=== PATIENT | female | born 1960 ===

== ENCOUNTER 2017-01-06 09:56 | Emergency (ER) | payer MEDICAID ==
[2017-01-06 09:56] VITALS: BMI 40.8
[2017-01-06 10:35] VITALS: RESP 19
--- NOTE | 2017-01-06 11:44 | ED PDOC ---
HPI: General Adult Time Seen by Provider: 01/06/17 10:47 Chief Complaint (Nursing): Flu-like Symptoms Chief Complaint (Provider): fluk like symtpoms History Per: Patient History/Exam Limitations: no limitations Additional Complaint(s): 56yo F in ED for eval of cough, congestion, bodyaches, fever, generalized ill feeling x2d no cp, no epigastric pain, no SOB,. admits to sick contacts in household Past Medical History Reviewed: Historical Data, Nursing Documentation, Vital Signs Vital Signs: Last Vital Signs Temp 97 F L 01/06/17 10:24 Pulse 112 H 01/06/17 10:24 Resp 19 01/06/17 10:24 BP 110/75 01/06/17 10:24 Pulse Ox 98 01/06/17 11:44 - Medical History PMH: Asthma, Diabetes, Diverticulitis, HTN, Hypercholesterolemia, Hyperthyroidism, Hypothyroidism, Malignancy (breast CA) Denies: Chronic Kidney Disease - Surgical History Surgical History: Cholecystectomy, (x 2) - Family History Family History: States: Diabetes, Hypertension - Home Medications Home Medications: Ambulatory Orders Medication Instructions Recorded Letrozole [Femara] 2.5 mg PO DAILY 08/06/14 MetFORMIN [glucoPHAGE] 1,000 mg PO BID 08/06/14 Atorvastatin Calcium [Lipitor] 20 mg PO HS 09/26/14 Glimepiride 4 mg PO BID 09/26/14 Fluticasone/Salmeterol 250/50 1 puff IH DAILY 09/29/14 [Advair Diskus 250/50] Ciprofloxacin HCl [Cipro] 500 mg PO BID #20 tab 01/16/16 metroNIDAZOLE [Flagyl] 500 mg PO TID #30 tab 01/16/16 Albuterol HFA [Ventolin HFA 90 2 puff IH Q4H PRN 01/18/16 mcg/actuation (8 g)] Aspirin [Ecotrin] 81 mg PO DAILY 01/18/16 Ergocalciferol (Vitamin D2) 50,000 unit PO QWK 01/18/16 [Vitamin D2] Levothyroxine [Synthroid] 125 mcg PO DAILY 01/18/16 Ondansetron [Zofran] 4 mg PO Q6H PRN #10 tab 01/18/16 Oxycodone HCl/Acetaminophen 1 tab PO Q4 PRN #12 tab 01/18/16 [Percocet 325 mg-5 mg] Valsartan/Hydrochlorothiazide 1 tab PO DAILY 01/18/16 [Diovan Hct 320-25 mg Tablet] Albuterol 0.083% [Albuterol 0.083% 2.5 mg IH Q4 PRN #20 neb 04/23/16 Inhal Krys (2.5 mg/3 ml) UD] Fluticasone/Salmeterol 250/50 1 puff IH Q12 #1 inh 04/23/16 [Advair Diskus] Prednisone 50 mg PO DAILY #5 tablet 04/23/16 Albuterol HFA [Ventolin HFA 90 2 puff IH Q6 #200 puff 01/06/17 mcg/actuation (8 g)] Azithromycin [Zithromax] 250 mg PO DAILY #6 tab 01/06/17 Dextromethorphan Polistirex 30 mg PO BID #100 marilyn.er.12h 01/06/17 [Delsym] - Allergies Allergies/Adverse Reactions: Allergies Allergy/AdvReac Type Severity Reaction Status Date / Time No Known Allergies Allergy Verified 04/23/16 12:41 Review of Systems ROS Statement: Except As Marked, All Systems Reviewed And Found Negative Constitutional: Positive for: Fever, Weakness, Malaise. Negative for: Chills Cardiovascular: Negative for: Chest Pain, Palpitations, Orthopnea Respiratory: Positive for: Cough, Sputum. Negative for: Shortness of Breath Gastrointestinal: Negative for: Nausea, Vomiting, Abdominal Pain Physical Exam - Reviewed Nursing Documentation Reviewed: Yes Vital Signs Reviewed: Yes - Physical Exam Appears: Positive for: Well, Non-toxic, No Acute Distress Head Exam: Positive for: ATRAUMATIC, NORMAL INSPECTION, NORMOCEPHALIC Skin: Positive for: Normal Color, Warm, DRY ENT: Positive for: Normal ENT Inspection Cardiovascular/Chest: Positive for: Regular Rate, Rhythm Respiratory: Positive for: CNT, Normal Breath Sounds Gastrointestinal/Abdominal: Positive for: Normal Exam, Bowel Sounds, Soft. Negative for: Tenderness Back: Positive for: Normal Inspection Extremity: Positive for: Normal ROM Neurologic/Psych: Positive for: Alert, Oriented - Laboratory Results Interpretation Of Abn Labs: influ a/b (-) - ECG O2 Sat by Pulse Oximetry: 98 - Radiology X-Ray: Interpreted by Me, Read By Radiologist X-Ray Interpretation: No Acute Disease Medical Decision Making Medical Decision Making: Pt HR improved in Ed, Pt breathing improved in ED after duoneb, Pt with negative influa/b. pt will need asthma control via rescue inhaler . pt EKG- pt will get Z-pack, deslym and albuterol rescue inhaler Disposition - Clinical Impression Clinical Impression: Influenza-like symptoms - Patient ED Disposition Is Patient to be Admitted: No Counseled Patient/Family Regarding: Studies Performed, Diagnosis, Need For Followup, Rx Given - Disposition Disposition: Routine/Home Disposition Time: 13:23 Condition: STABLE Prescriptions: Albuterol HFA [Ventolin HFA 90 mcg/actuation (8 g)] 2 puff IH Q6 #200 puff Azithromycin [Zithromax] 250 mg PO DAILY #6 tab Dextromethorphan Polistirex [Delsym] 30 mg PO BID #100 marilyn.er.12h Instructions: Antitussive/Expectorant (By mouth) Forms: [facility] ED School/Work Excuse
[2017-01-06] MEDS ORDERED: Albuterol-Ipratrop 3 mg / 0.5 (3 ml) UD ONE (12:11)
[2017-01-06] MEDS ORDERED: Albuterol-Ipratrop 3 mg / 0.5 (3 ml) UD INH STA (12:15)
--- NOTE | 2017-01-06 12:43 | RAD ---
HISTORY: cough COMPARISON: . Comparison made with prior chest radiograph 04/23/2016 TECHNIQUE: Chest PA and lateral FINDINGS: LUNGS: In situ right sided MediPort unchanged. There appears to be some mild bibasilar atelectasis PLEURA: No significant pleural effusion identified. No pneumothorax apparent. CARDIOVASCULAR: Normal. OSSEOUS STRUCTURES: No significant abnormalities. VISUALIZED UPPER ABDOMEN: Normal. OTHER FINDINGS: Tiny metallic surgical clips seen overlying the right lateral chest wall. Clinic correlation with surgical history. IMPRESSION: Mild bibasilar atelectasis.
[2017-01-06 14:05] VITALS: BP 128/67; PULSE 89; TEMP 98.2; O2SAT 100
--- NOTE | 2017-01-07 16:47 | CARD ---
APPROVED REPORT EKG Measurement Heart [id number] <Conclusion> Normal sinus rhythm Possible Left atrial enlargement Right bundle branch block Abnormal ECG
== END 2017-01-06 14:05 | disposition home or self-care (01) ==
LOC: H.ER 09:56
DX: R05 Cough (principal); J45.909 Unspecified asthma, uncomplicated; E05.90 Thyrotoxicosis, unspecified without thyrotoxic crisis or storm; E11.9 Type 2 diabetes mellitus without complications; E78.00 Pure hypercholesterolemia, unspecified; I10 Essential (primary) hypertension; I45.10 Unspecified right bundle-branch block; Z79.82 Long term (current) use of aspirin; Z79.84 Long term (current) use of oral hypoglycemic drugs; Z85.3 Personal history of malignant neoplasm of breast

== ENCOUNTER 2017-04-24 07:51 | Day surgery (SDC) | payer MEDICAID ==
[2017-04-24] MEDS ORDERED: Lactated Ringer's 500 ML IV ONE (08:10)
[2017-04-24] MEDS ORDERED: Sodium Chloride 0.9% 1,000 ML IV ONE (08:10)
[2017-04-24] MEDS ORDERED: Midazolam 2 MG/2 ML VIAL ONE (10:01)
[2017-04-24] MEDS ORDERED: Propofol 10 mg/ml Inj (20 ML) ONE (10:01)
[2017-04-24 10:19] VITALS: TEMP 97.2; O2SAT 100
[2017-04-24 10:30] VITALS: BP 120/76; PULSE 80; RESP 20
== END 2017-04-24 10:42 | disposition home or self-care (01) ==
LOC: H.ENDO 07:51
PROVIDERS: ATTEND Internal Medicine Gastroenterology
DX: Z12.11 Encounter for screening for malignant neoplasm of colon (principal); E11.9 Type 2 diabetes mellitus without complications; J45.909 Unspecified asthma, uncomplicated; E78.5 Hyperlipidemia, unspecified; I10 Essential (primary) hypertension; E03.9 Hypothyroidism, unspecified; K57.30 Diverticulosis of large intestine without perforation or abscess without bleeding; K64.1 Second degree hemorrhoids
CPT/HCPCS: 45378; 82948; J2250; J2704; J7040

== ENCOUNTER 2017-10-26 14:15 | Emergency (ER) | payer MEDICAID ==
[2017-10-26 14:16] VITALS: BMI 40.8
[2017-10-26 14:40] VITALS: RESP 18
--- NOTE | 2017-10-26 14:44 | ED PDOC ---
HPI: General Adult Time Seen by Provider: 10/26/17 14:43 Chief Complaint (Nursing): Fever Chief Complaint (Provider): fever, cough, body aches History Per: Patient Additional Complaint(s): 57-year-old female with history of asthma, hypertension, diabetes and high cholesterol presents to emergency department with fever, chills, body aches and cough that started 4 days ago. Patient has been taking Advil which has helped somewhat. Today symptoms became overwhelming prompting patient to come to ED. Patient denies any acute chest pain or shortness of breath. Patient has been using Ventolin inhaler and Advair inhaler twice daily but as the symptoms are still persistent. No recent travel PMD: Dr. Jean Ray Past Medical History Reviewed: Historical Data, Nursing Documentation, Vital Signs Vital Signs: Last Vital Signs Temp 698.1 F H 10/26/17 17:50 Pulse 84 10/26/17 17:50 Resp 18 10/26/17 17:50 BP 133/77 10/26/17 17:50 Pulse Ox 98 10/26/17 18:35 - Medical History PMH: Asthma, Diabetes, HTN, Hypercholesterolemia, Hypothyroidism, Malignancy ( breast CA) - Surgical History Surgical History: Cholecystectomy, (x 2) Other surgeries: right mastectomy - Family History Family History: States: Diabetes, Hypertension - Living Arrangements Living Arrangements: With Family - Social History Current smoker - smoking cessation education provided: No Alcohol: None Drugs: Denies - Home Medications Home Medications: Ambulatory Orders Medication Instructions Recorded MetFORMIN [glucoPHAGE] 1,000 mg PO BID 08/06/14 Atorvastatin Calcium [Lipitor] 20 mg PO HS 09/26/14 Glimepiride 4 mg PO BID 09/26/14 Albuterol HFA [Ventolin HFA 90 2 puff IH Q4H PRN 01/18/16 mcg/actuation (8 g)] Aspirin [Ecotrin] 81 mg PO DAILY 01/18/16 Levothyroxine [Synthroid] 125 mcg PO DAILY 01/18/16 Valsartan/Hydrochlorothiazide 1 tab PO DAILY 01/18/16 [Diovan Hct 320-25 mg Tablet] Azithromycin [Zithromax] 250 mg PO DAILY #6 tab 10/26/17 Benzonatate 200 mg PO TID PRN #20 capsule 10/26/17 Fluticasone/Salmeterol [Advair 1 each IH BID #1 packet 10/26/17 250-50 Diskus] Prednisone 50 mg PO DAILY #5 tablet 10/26/17 - Allergies Allergies/Adverse Reactions: Allergies Allergy/AdvReac Type Severity Reaction Status Date / Time No Known Allergies Allergy Verified 10/26/17 14:37 Review of Systems ROS Statement: Except As Marked, All Systems Reviewed And Found Negative Constitutional: Positive for: Fever, Chills Cardiovascular: Negative for: Chest Pain Respiratory: Positive for: Cough, Shortness of Breath, SOB with Exertion, Wheezing Gastrointestinal: Negative for: Nausea, Vomiting, Abdominal Pain Genitourinary Female: Negative for: Dysuria Neurological: Positive for: Headache. Negative for: Dizziness Physical Exam - Reviewed Nursing Documentation Reviewed: Yes Vital Signs Reviewed: Yes - Physical Exam Appears: Positive for: Well, Non-toxic, No Acute Distress Skin: Negative for: Rash Eye Exam: Positive for: Normal appearance ENT: Positive for: Nasal Congestion Cardiovascular/Chest: Positive for: Regular Rate, Rhythm Respiratory: Positive for: Wheezing (Bilateral inspiratory next 3 wheezing). Negative for: Respiratory Distress Gastrointestinal/Abdominal: Positive for: Other (Obese nontender abdomen) Back: Negative for: L CVA Tenderness, R CVA Tenderness Extremity: Positive for: Normal ROM Neurologic/Psych: Positive for: Alert, Oriented - Laboratory Results Result Diagrams: 10/26/17 15:50 10/26/17 15:50 - ECG O2 Sat by Pulse Oximetry: 98 Pulse Ox Interpretation: Normal - Other Rad CXR X-Ray: Interpreted by Me, Viewed By Me X-Ray Interpretation: no acute infiltrate Medical Decision Making Medical Decision Makin-year-old female with flu- like symptoms, afebrile, well-appearing, nontoxic-appearing upon arrival Plan: CXR Duoneb x 2 IV solumedrol 40 mg CBC CMP VBG Blood culture Flu swab Rapid strep IVF PO tylenol Additional 40 mg IV solumedrol given, patient still feels slightly short of breath but better. She states she usually needs more than 1 dose of steroid with asthma exacerbation. Lactate is 2.9, additional fluid bolus given, will re-check lactate again in 3 hrs. 7:30 pm: Repeat lactate is normal at 1.7. Repeat vitals are stable. Patient states she feels much better. Prescriptions given for Zithromax, prednisone, Advair and Tessalon Perles. Patient was instructed to follow up with clinic in 2 -3 days. She is aware she can return to emergency department any time if acutely worse. Disposition - Clinical Impression Clinical Impression: Asthmatic bronchitis - Patient ED Disposition Is Patient to be Admitted: No Counseled Patient/Family Regarding: Studies Performed, Diagnosis, Need For Followup, Rx Given - Disposition Referrals: Jean Ray MD [Family Provider] - Disposition: Routine/Home Disposition Time: 19:34 Condition: IMPROVED Additional Instructions: Take prescription meds as directed. Rest and drink plenty of fluids. Follow-up with clinic in 2-3 days or return any time if acutely worse. Prescriptions: Azithromycin [Zithromax] 250 mg PO DAILY #6 tab Benzonatate 200 mg PO TID PRN #20 capsule PRN Reason: Cough Fluticasone/Salmeterol [Advair 250-50 Diskus] 1 each IH BID #1 packet Prednisone 50 mg PO DAILY #5 tablet Instructions: Asthma in Adults, Acute Bronchitis Forms: [employer] ([place]), [facility] ED School/Work Excuse Results - Lab Results Lab Results: 10/26/17 10/26/17 10/26/17 19:22 17:39 15:50 WBC 4.8 D RBC 4.90 Hgb 12.7 Hct 38.6 MCV 78.8 L MCH 25.9 L MCHC 32.8 L RDW 15.3 H Plt Count 212 MPV 8.7 Neut % (Auto) 61.6 Lymph % (Auto) 29.3 Marion % (Auto) 6.6 Eos % (Auto) 2.1 Baso % (Auto) 0.4 Neut # (Auto) 3.0 Lymph # (Auto) 1.4 Marion # (Auto) 0.3 Eos # (Auto) 0.1 Baso # (Auto) 0.0 pO2 37 VBG pH 7.36 VBG pCO2 44 VBG HCO3 23.5 VBG Total CO2 26.3 VBG O2 Sat (Calc) 76.1 H VBG Base Excess -0.8 L VBG Potassium 4.2 Sodium 139.0 Chloride 105.0 Glucose 249 H Lactate 1.7 FiO2 21.0 Blood Gas Comments Crit Value Called To Crit Value Called By Crit Value Read Back Blood Gas Notified Time Potassium Carbon Dioxide Anion Gap BUN Creatinine Est GFR ( Amer) Est GFR (Non-Af Amer) POC Glucose (mg/dL) 165 H Random Glucose Calcium Total Bilirubin AST ALT Alkaline Phosphatase Total Protein Albumin Globulin Albumin/Globulin Ratio Venous Blood Potassium 4.2 Influenza Typ A,B (EIA) Grp A Beta Strep Ag 10/26/17 10/26/17 10/26/17 15:50 15:34 15:30 WBC RBC Hgb Hct MCV MCH MCHC RDW Plt Count MPV Neut % (Auto) Lymph % (Auto) Marion % (Auto) Eos % (Auto) Baso % (Auto) Neut # (Auto) Lymph # (Auto) Marion # (Auto) Eos # (Auto) Baso # (Auto) pO2 24 L VBG pH 7.33 VBG pCO2 54 VBG HCO3 24.5 VBG Total CO2 30.2 H VBG O2 Sat (Calc) 47.9 VBG Base Excess 1.5 VBG Potassium 3.9 Sodium 143 141.0 Chloride 102 103.0 Glucose 263 H Lactate 2.9 H FiO2 21.0 Blood Gas Comments Lac 2.9 Crit Value Called To marleny Schilling Crit Value Called By 22 Crit Value Read Back Y Blood Gas Notified Time 1544 Potassium 4.5 Carbon Dioxide 26 Anion Gap 20 BUN 22 H Creatinine 0.7 Est GFR ( Amer) > 60 Est GFR (Non-Af Amer) > 60 POC Glucose (mg/dL) Random Glucose 260 H Calcium 9.5 Total Bilirubin 0.6 AST 21 ALT 28 Alkaline Phosphatase 79 Total Protein 8.0 Albumin 3.9 Globulin 4.0 H Albumin/Globulin Ratio 1.0 Venous Blood Potassium 3.9 Influenza Typ A,B (EIA) Grp A Beta Strep Ag Negative 10/26/17 15:30 WBC RBC Hgb Hct MCV MCH MCHC RDW Plt Count MPV Neut % (Auto) Lymph % (Auto) Marion % (Auto) Eos % (Auto) Baso % (Auto) Neut # (Auto) Lymph # (Auto) Marion # (Auto) Eos # (Auto) Baso # (Auto) pO2 VBG pH VBG pCO2 VBG HCO3 VBG Total CO2 VBG O2 Sat (Calc) VBG Base Excess VBG Potassium Sodium Chloride Glucose Lactate FiO2 Blood Gas Comments Crit Value Called To Crit Value Called By Crit Value Read Back Blood Gas Notified Time Potassium Carbon Dioxide Anion Gap BUN Creatinine Est GFR ( Amer) Est GFR (Non-Af Amer) POC Glucose (mg/dL) Random Glucose Calcium Total Bilirubin AST ALT Alkaline Phosphatase Total Protein Albumin Globulin Albumin/Globulin Ratio Venous Blood Potassium Influenza Typ A,B (EIA) Negative for flu a/b Grp A Beta Strep Ag
[2017-10-26] MEDS ORDERED: Albuterol-Ipratrop 3 mg / 0.5 (3 ml) UD INH STA (15:00)
[2017-10-26] MEDS ORDERED: Sodium Chloride 0.9% 1,000 ML IV STA ×2 (15:00→15:53)
[2017-10-26] MEDS ORDERED: methylPREDNISolone 40 MG in Sodium Chloride 0.9% 50 ML IV STA ×2 (15:00→17:22)
[2017-10-26] MEDS ORDERED: Albuterol-Ipratrop 3 mg / 0.5 (3 ml) UD ONE (15:11)
[2017-10-26] MEDS ORDERED: MethylPREDNISolone 40 mg Vial ONE ×2 (15:11→17:27)
[2017-10-26] MEDS ORDERED: MethylPREDNISolone 40 mg Vial IVP ONE ×2 (15:15→17:30)
[2017-10-26 15:45] LABS: VENOUS BLOOD GAS BASE EXCESS 1.5 mmol/L (0.0-2.0); VENOUS BLOOD GAS PCO2 54 mmHg (40-60); VENOUS BLOOD GAS PO2 24 mm/Hg (30-55); VENOUS BLOOD PH 7.33 (7.32-7.43)
[2017-10-26 15:57] LABS: BASO % 0.4 % (0.0-2.0); EOS # 0.1 K/uL (0.0-0.7); EOS % 2.1 % (0.0-4.0); HEMOGLOBIN 12.7 g/dL (12.0-16.0); LYMPH # 1.4 K/uL (1.0-4.3); LYMPH % 29.3 % (20.0-40.0); MEAN CELL VOLUME 78.8 fl (81.0-99.0); MEAN CORPUSCULAR HEMOGLOBIN 25.9 pg (27.0-31.0); MEAN CORPUSCULAR HGB CONC 32.8 g/dL (33.0-37.0); MEAN PLATELET VOLUME 8.7 fl (7.2-11.7); MONO # 0.3 K/uL (0.0-0.8); MONO % 6.6 % (0.0-10.0); NEUT % 61.6 % (50.0-75.0); NRBC % 0.1 % (0.0-0.0); RBC 4.9 Mil/uL (3.80-5.20); RED CELL DISTRIBUTION WIDTH 15.3 % (11.5-14.5); WHITE BLOOD COUNT 4.8 K/uL (4.8-10.8)
[2017-10-26 16:09] LABS: ALBUMIN 3.9 g/dL (3.5-5.0); ALT/SGPT 28 U/L (9-52); AST/SGOT 21 U/L (14-36); BLOOD UREA NITROGEN 22 mg/dl (7-17); CALCIUM 9.5 mg/dL (8.4-10.2); GFR AFRICAN-AMERICAN > 60; GFR NON-AFRICAN AMERICAN > 60
--- NOTE | 2017-10-26 16:39 | RAD ---
HISTORY: Fever and cough COMPARISON: No. Comparison chest 01/06/2017 FINDINGS: In situ MediPort tip in the SVC/RA junction. LUNGS: No active pulmonary disease. Suspect small hiatal hernia PLEURA: No significant pleural effusion identified, no pneumothorax apparent. CARDIOVASCULAR: Heart appears borderline/ mildly enlarged. OSSEOUS STRUCTURES: No significant abnormalities. VISUALIZED UPPER ABDOMEN: Normal. OTHER FINDINGS: None. IMPRESSION: No acute infiltrates.
[2017-10-26 19:27] LABS: VENOUS BLOOD GAS BASE EXCESS -0.8 mmol/L (0.0-2.0); VENOUS BLOOD GAS PCO2 44 mmHg (40-60); VENOUS BLOOD GAS PO2 37 mm/Hg (30-55); VENOUS BLOOD PH 7.36 (7.32-7.43)
[2017-10-26 19:40] VITALS: BP 152/80; PULSE 88
[2017-10-26 19:41] VITALS: O2SAT 98
[2017-10-26 19:42] VITALS: TEMP 97.9
== END 2017-10-26 19:47 | disposition home or self-care (01) ==
LOC: H.ER 14:15
DX: J45.901 Unspecified asthma with (acute) exacerbation (principal); E03.9 Hypothyroidism, unspecified; E11.9 Type 2 diabetes mellitus without complications; E78.00 Pure hypercholesterolemia, unspecified; I10 Essential (primary) hypertension; Z79.82 Long term (current) use of aspirin; Z79.84 Long term (current) use of oral hypoglycemic drugs; Z85.3 Personal history of malignant neoplasm of breast
CPT/HCPCS: 71045; 80053; 82803; 82948; 85025; 87040; 87070; 87430; 87804; 94150; 94640; 96361; 96374; 96376; 99285; J2920; J7040

== ENCOUNTER 2018-02-24 17:43 | Emergency (ER) | payer MEDICAID ==
[2018-02-24 17:43] VITALS: BMI 40.8
[2018-02-24] MEDS ORDERED: Sodium Chloride 0.9% 1,000 ML IV STA (18:12)
--- NOTE | 2018-02-24 18:30 | ED PDOC ---
HPI: Chest Pain Time Seen by Provider: 02/24/18 18:20 Chief Complaint (Nursing): Chest Pain Chief Complaint (Provider): CP History Per: Patient (57 Y/O FEMALE HERE WITH CHEST PAIN INTERMITTENT SINCE 2PM TODAY LASTING 5-10 MINUTES MID-STERNAL. PATIENT STATES SHE HAD HEADACHE WITH VOMITING ON FRIDAY. DENIES ANY DIARRHEA/ABDOMINAL PAIN. STATES HEADACHE RESOLVED ON FRIDAY AND PATIENT WENT TO WORK ON FRIDAY FEELING IMPROVED UNTIL CHEST PAIN OCCURRED. OF NOTE, PATIENT HAS RAN OUT OF INSULIN ON FRIDAY WELL. NO PRIOR H/O MS. HAS H/O BREAST CA WITH MASTECTOMY 2011.) Past Medical History Vital Signs: Last Vital Signs Temp 98 F 02/24/18 17:48 Pulse 100 H 02/24/18 19:25 Resp 20 02/24/18 19:25 BP 136/70 02/24/18 19:25 Pulse Ox 95 02/24/18 19:36 - Medical History PMH: Asthma, Diabetes, Diverticulitis, HTN, Hypercholesterolemia, Hyperthyroidism, Hypothyroidism, Malignancy (breast CA) Denies: Chronic Kidney Disease - Surgical History Surgical History: Cholecystectomy, (x 2) - Family History Family History: States: Diabetes, Hypertension - Home Medications Home Medications: Ambulatory Orders Medication Instructions Recorded Atorvastatin Calcium [Lipitor] 20 mg PO DAILY 09/26/14 Glimepiride 4 mg PO BID 09/26/14 Albuterol HFA [Ventolin HFA 90 2 puff IH Q6 PRN 01/18/16 mcg/actuation (8 g)] Aspirin [Ecotrin] 81 mg PO DAILY 01/18/16 Levothyroxine [Synthroid] 125 mcg PO DAILY 01/18/16 Valsartan/Hydrochlorothiazide 1 tab PO DAILY 01/18/16 [Diovan Hct 320-25 mg Tablet] Alogliptin Benzoate [Alogliptin] 25 mg PO DAILY 02/24/18 Fluticasone/Salmeterol [Airduo 1 puff IH Q12 02/24/18 Respiclick 113-14 Mcg] Insulin Glargine,Hum.rec.anlog 40 unit SC HS 02/24/18 [Basaglar Kwikpen U-100] Letrozole [Femara] 2.5 mg PO DAILY 02/24/18 Montelukast [Singulair] 10 mg PO DAILY 02/24/18 - Allergies Allergies/Adverse Reactions: Allergies Allergy/AdvReac Type Severity Reaction Status Date / Time No Known Allergies Allergy Verified 02/24/18 17:48 - Laboratory Results Result Diagrams: 02/24/18 18:30 02/24/18 18:30 - ECG O2 Sat by Pulse Oximetry: 95 - Progress ED Course And Treament: EKG: NSR 77BPM RBBB ? ST ELEVATION NOTED LEADS iii/AVR. ST DEPRESSION NOTED V4- V6. PATIENT STATES SHE IS CURRENTLY CHEST PAIN FREE. ASA 324 MG X 1 DOSE ORDERED PEPCID 20 MG IV X [address] SCOTT UPON EKG REVIEW. ns [address] L[address] WIDE OPEN HEAD CT: NAD SEEN BY DR. GARCIA IN ED. D/W [employer]EL[employer]. Disposition - Clinical Impression Clinical Impression: Chest pain, Hyperglycemia - Patient ED Disposition Is Patient to be Admitted: Yes - Disposition Disposition Time: 19:36 Condition: FAIR - Pt Status Changed To: Hospital Disposition Of: Inpatient - Admit Certification Admit to Inpatient:: After my assessment, the patient will require hospitalization for at least two midnights. This is because of the severity of symptoms shown, intensity of services needed, and/or the medical risk in this patient being treated as an outpatient.
[2018-02-24 18:35] LABS: VENOUS BLOOD GAS PCO2 44 mmHg (40-60); VENOUS BLOOD GAS PO2 35 mm/Hg (30-55)
[2018-02-24 18:36] LABS: BASO # 0.1 K/uL (0.0-0.2); BASO % 0.7 % (0.0-2.0); EOS # 0.1 K/uL (0.0-0.7); EOS % 0.8 % (0.0-4.0); HEMOGLOBIN 12.8 g/dL (12.0-16.0); LYMPH # 1.6 K/uL (1.0-4.3); LYMPH % 15.3 % (20.0-40.0); MEAN CELL VOLUME 79.8 fl (81.0-99.0); MEAN CORPUSCULAR HEMOGLOBIN 26.5 pg (27.0-31.0); MEAN CORPUSCULAR HGB CONC 33.2 g/dL (33.0-37.0); MONO # 0.6 K/uL (0.0-0.8); MONO % 6.1 % (0.0-10.0); NEUT # 7.9 K/uL (1.8-7.0); NEUT % 77.1 % (50.0-75.0); RBC 4.85 Mil/uL (3.80-5.20); RED CELL DISTRIBUTION WIDTH 14.7 % (11.5-14.5); WHITE BLOOD COUNT 10.3 K/uL (4.8-10.8)
--- NOTE | 2018-02-24 18:44 | RAD ---
Date of service: 02/24/2018 HISTORY: CP COMPARISON: Chest radiograph dated 10/26/2017. FINDINGS: LUNGS: No active pulmonary disease. PLEURA: No significant pleural effusion identified, no pneumothorax apparent. CARDIOVASCULAR: Normal. OSSEOUS STRUCTURES: Unchanged. VISUALIZED UPPER ABDOMEN: Normal. OTHER FINDINGS: Right subclavian access chest port, unchanged. IMPRESSION: No active disease.
[2018-02-24 18:49] LABS: ALB/GLOB RATIO 1.2 (1.0-2.1); ALBUMIN 4.2 g/dL (3.5-5.0); ALT/SGPT 17 U/L (9-52); AST/SGOT 17 U/L (14-36); BLOOD UREA NITROGEN 24 mg/dl (7-17); CALCIUM 9.4 mg/dL (8.4-10.2); GFR AFRICAN-AMERICAN 51; GFR NON-AFRICAN AMERICAN 43; LIPASE 174 U/L (23-300)
--- NOTE | 2018-02-24 20:10 | CP.PCM.HP ---
History of Present Illness - History of Present Illness History of Present Illness: History taken from patient Full code PMD: Dr Ray 57 y/o F with PMHx of IDDM2, hypothyroidism, Asthma, HTN, Breast Ca on remission , presented to ED c/o Chest pressure. Patient was evaluated by PMD today who advised her to come to ED. As per patient CP started 2 days ago, comes and goes , moderate, no radiation, pressure-like. She ran out of Lantus 3 days ago and 3 days ago had multiple episodes of NBNB vomiting that lasted 1 day, with nausea and mild headache. 1 day after having those episodes she started feeling the CP and also admits having heart burn. At the time of examination CP has resolved and patient denies any GI symptoms, urinary symptoms, SOB, palpitations, LE edema or paresthesias. ED course CBC: WBC, Hgb and PLt all WNL CMP: BS 331, Anion gap 21, BIcarb WNL, BUN/Creat 24/1.3 TRop normal x1 EKG: RBBB, Nonspecific ST changes(Pending official report) CXR: No active disease Head CT: No evidence of acute intracranial hemorrhage. Evaluated by Cardiology(Dr Raphael). Rec stress test AM if trops normal IV NS 1L at 500 mls ASA 325 mg once Pepcid 20 mg IV once PMHx: IDDM2, HTN, Asthma, Hypothyroidism, Breast Ca(2011) S/P Chemo on remission SxHx: Gallbladder, R/Mastectomy SHx: Denies x3 FHx: Unknown Allergies: NKDA Present on Admission - Present on Admission Any Indicators Present on Admission: Yes History of Uncontrolled Diabetes: Yes Review of Systems - Review of Systems All systems: reviewed and no additional remarkable complaints except (Those described on HPI) Past Patient History - Infectious Disease Hx of Infectious Diseases: None - Past Medical History & Family History Past Medical History?: Yes - Past Social History Smoking Status: Never Smoked Alcohol: None Drugs: Denies Home Situation {Lives}: With Family - CARDIAC Hx Hypercholesterolemia: Yes Hx Hypertension: Yes - PULMONARY Hx Asthma: Yes - NEUROLOGICAL Hx Neurological Disorder: No - HEENT Hx HEENT Problems: No - RENAL Hx Chronic Kidney Disease: No - ENDOCRINE/METABOLIC Hx Hypothyroidism: Yes - HEMATOLOGICAL/ONCOLOGICAL Hx Blood Disorders: Yes Hx Cancer: Yes Hx Chemotherapy: Yes - INTEGUMENTARY Hx Dermatological Problems: No - MUSCULOSKELETAL/RHEUMATOLOGICAL Hx Musculoskeletal Disorders: No - GASTROINTESTINAL Hx Diverticulitis: Yes - GENITOURINARY/GYNECOLOGICAL Hx Genitourinary Disorders: No - PSYCHIATRIC Hx Psychophysiologic Disorder: No Hx Emotional Abuse: No Hx Physical Abuse: No Hx Substance Use: No - SURGICAL HISTORY Hx Cholecystectomy: Yes - ANESTHESIA Hx Anesthesia: Yes Hx Anesthesia Reactions: No Hx Malignant Hyperthermia: No Meds Allergies/Adverse Reactions: Allergies Allergy/AdvReac Type Severity Reaction Status Date / Time No Known Allergies Allergy Verified 02/24/18 17:48 Physical Exam - Constitutional Appears: Non-toxic, No Acute Distress - Head Exam Head Exam: ATRAUMATIC, NORMAL INSPECTION - Eye Exam Eye Exam: EOMI, PERRL - ENT Exam ENT Exam: Mucous Membranes Dry (Mild) - Respiratory Exam Respiratory Exam: Clear to Auscultation Bilateral, NORMAL BREATHING PATTERN. absent: Rales, Rhonchi, Wheezes, Respiratory Distress - Cardiovascular Exam Cardiovascular Exam: Tachycardia (Slightly), REGULAR RHYTHM, +S1, +S2. absent: Gallop - GI/Abdominal Exam GI & Abdominal Exam: Hernia (Non complicated), Normal Bowel Sounds, Soft, Tenderness (Mild, deep palpation of supraumbilical hernia). absent: Guarding, Rebound, Rigid - Extremities Exam Extremities exam: Positive for: normal capillary refill, normal inspection. Negative for: calf tenderness, joint swelling, pedal edema, tenderness - Neurological Exam Neurological exam: Alert, CN II-XII Intact, Normal Gait, Oriented x3 - Psychiatric Exam Psychiatric exam: Normal Affect, Normal Mood - Skin Skin Exam: Normal Color, Warm Results - Vital Signs Recent Vital Signs: Last Vital Signs Temp 98 F 02/24/18 17:48 Pulse 100 H 02/24/18 19:25 Resp 20 02/24/18 19:25 BP 136/70 02/24/18 19:25 Pulse Ox 95 02/24/18 19:59 - Labs Result Diagrams: 02/24/18 18:30 02/24/18 18:30 Labs: Laboratory Results - last 24 hr 02/24/18 02/24/18 02/24/18 18:04 18:28 18:30 WBC 10.3 D RBC 4.85 Hgb 12.8 Hct 38.7 MCV 79.8 L MCH 26.5 L MCHC 33.2 RDW 14.7 H Plt Count 227 MPV 9.0 Neut % (Auto) 77.1 H Lymph % (Auto) 15.3 L [place] % (Auto) 6.1 Eos % (Auto) 0.8 Baso % (Auto) 0.7 Neut # (Auto) 7.9 H Lymph # (Auto) 1.6 [place] # (Auto) 0.6 Eos # (Auto) 0.1 Baso # (Auto) 0.1 pO2 35 VBG pH 7.40 VBG pCO2 44 VBG HCO3 25.7 VBG Total CO2 28.7 H VBG O2 Sat (Calc) 68.1 H VBG Base Excess 2.0 VBG Potassium 3.9 Sodium 134.0 Chloride 98.0 Glucose 390 H Lactate 2.7 H FiO2 21.0 Potassium Carbon Dioxide Anion Gap BUN Creatinine Est GFR ( Amer) Est GFR (Non-Af Amer) POC Glucose (mg/dL) 328 H Random Glucose Calcium Total Bilirubin AST ALT Alkaline Phosphatase Troponin I Total Protein Albumin Globulin Albumin/Globulin Ratio Lipase Venous Blood Potassium 3.9 02/24/18 18:30 WBC RBC Hgb Hct MCV MCH MCHC RDW Plt Count MPV Neut % (Auto) Lymph % (Auto) [place] % (Auto) Eos % (Auto) Baso % (Auto) Neut # (Auto) Lymph # (Auto) [place] # (Auto) Eos # (Auto) Baso # (Auto) pO2 VBG pH VBG pCO2 VBG HCO3 VBG Total CO2 VBG O2 Sat (Calc) VBG Base Excess VBG Potassium Sodium 137 Chloride 97 L Glucose Lactate FiO2 Potassium 4.0 Carbon Dioxide 23 Anion Gap 21 H BUN 24 H Creatinine 1.3 H Est GFR ( Amer) 51 Est GFR (Non-Af Amer) 43 POC Glucose (mg/dL) Random Glucose 345 H Calcium 9.4 Total Bilirubin 0.6 AST 17 ALT 17 Alkaline Phosphatase 93 Troponin I < 0.0120 Total Protein 7.6 Albumin 4.2 Globulin 3.4 Albumin/Globulin Ratio 1.2 Lipase 174 Venous Blood Potassium Assessment & Plan - Assessment and Plan (Free Text) Assessment: 57 y/o with multiple comorbidities is admitted for Ches tpain to r/o ACS and Dehydration with hyperglycemia and JENNIFER Atypical Chest pain o r/o ACS Acute CP free at the time of eval Tropx1 normal EKG: RBBB with nonspecific ST changes, poss chronic Cardiology consulted at ED(Dr Raphael): Evaluated and rec stress test in AM if trops neg NPO after midnight s/p Asa 325 mg stat C/W Aspirin 81 mg daily Could be GI/MSK related if neg cardiac workup(had vomiting episodes 2 days ago) F/U repeat Trops and EKG AM Uncontrolled IDDM with hyperglycemia BS 331 on arrival Ran out of Lantus 3 days ago No acidosis F/U UA and HgbA1c S/P NS 1 L bolus at ED Start NS 1L at 250 mls after current bag ACHS medium dose ISS Diabetic diet Hold Lantus and Glipizide for now since patient is NPO after midnight for poss stress test in AM C/W Januvia 100 mg daily Hypoglycemia protocol Lactatemia w/o acidosis Poss due to hyperglycemia, dehydration Fluids replacement/BS control Repeat Lactate AM JENNIFER BUN/Creat 24/1.3 Poss due to dehydration, Hyperglycemia, vomiting, poor oral intake Fluid replacement F/U BMP AM DVT prophylaxis SCDs for now. Will f/u BMP AM and will start Lovenox HS if kidney function normalized
[2018-02-24] MEDS ORDERED: Sodium Chloride 0.9% 1,000 ML IV SCH (20:15)
[2018-02-24] MEDS ORDERED: Albuterol HFA 90 mcg/actuation (8 g) IH PRN (20:19)
[2018-02-24] MEDS ORDERED: Glucagon Recombinant 1 mg Inj IM PRN (20:21)
[2018-02-24] MEDS ORDERED: Dextrose 50% SYRINGE Inj (50 ml) IV PRN (20:21)
[2018-02-24] MEDS ORDERED: Patient's Own Med (Fluticasone/Salmeterol [Airduo Respiclick 113-14 Mcg] 1 PUFF) IH SCH (21:00)
[2018-02-24] MEDS ORDERED: INSULIN GLARGINE HUM REC ANLOG 40 UNIT SC SCH (22:00)
[2018-02-24] MEDS: Insulin Regular 100 units/ml SC SCH (22:04)
[2018-02-24 22:38] LABS: SQUAMOUS EPITHIAL 1 /hpf (0-5); URINE BILIRUBIN NEGATIVE (NEGATIVE); URINE BLOOD NEGATIVE (NEGATIVE); URINE CLARITY CLOUDY (Clear); URINE COLOR YELLOW (YELLOW); URINE GLUCOSE (UA) 150 mg/dL (Normal); URINE HYALINE CAST 0-2 /hpf (0-2); URINE LEUKOCYTE ESTERASE TRACE Leu/uL (Negative); URINE PROTEIN 30 mg/dL (NEGATIVE); URINE UROBILINOGEN 0.2-1.0 mg/dL (0.2-1.0)
[2018-02-25 06:15] LABS: HEMOGLOBIN 12.6 g/dL (12.0-16.0); MEAN CELL VOLUME 79.5 fl (81.0-99.0); MEAN CORPUSCULAR HEMOGLOBIN 26.5 pg (27.0-31.0); MEAN CORPUSCULAR HGB CONC 33.3 g/dL (33.0-37.0); RBC 4.75 Mil/uL (3.80-5.20); WHITE BLOOD COUNT 8.8 K/uL (4.8-10.8)
[2018-02-25 06:26] LABS: INR 1.1 (0.9-1.2); PARTIAL THROMBOPLASTIN TIME 26.7 Seconds (25.6-37.1); PROTHROMBIN TIME 11.7 Seconds (9.8-13.1)
[2018-02-25] MEDS ORDERED: Levothyroxine 125 MCG TAB PO SCH (06:30)
[2018-02-25 06:49] LABS: BLOOD UREA NITROGEN 18 mg/dl (7-17); CALCIUM 9.3 mg/dL (8.4-10.2); GFR AFRICAN-AMERICAN > 60; GFR NON-AFRICAN AMERICAN > 60
[2018-02-25 07:49] VITALS: RESP 16; TEMP 98.1; O2SAT 99
[2018-02-25] MEDS ORDERED: GlipiZIDE 10 mg SR Tab PO SCH (08:00)
--- NOTE | 2018-02-25 08:13 | CP.PCM.PN ---
Subjective - Date & Time of Evaluation Date of Evaluation: 02/25/18 Time of Evaluation: 07:50 - Subjective Subjective: Patient evaluated and examined at bedside in the morning. No acute distress. No acute events overnight. Improvement in headache, nausea, vomiting and chest pressure since yesterday night. Denies any dizziness, headaches, CP, SOB, urinary sx, N/V/D/C, fever or chills. Cardiology consult on board. Objective - Vital Signs/Intake and Output Vital Signs (last 24 hours): Temp Pulse Resp BP Pulse Ox 98.1 F 84 16 106/55 L 99 02/25/18 07:48 02/25/18 07:48 02/25/18 07:48 02/25/18 07:48 02/25/18 07:48 - Medications Medications: Current Medications Albuterol (Ventolin Hfa 90 Mcg/Actuation (8 G)) 2 puff IH Q6 PRN PRN Reason: Shortness of Breath Aspirin (Ecotrin) 81 mg PO DAILY [facility] Atorvastatin Calcium (Lipitor) 20 mg PO DAILY [facility] Dextrose (Dextrose 50% Inj) 0 ml IV STAT PRN; Protocol PRN Reason: Hypoglycemia Protocol Dextrose (Glutose 15) 0 gm PO ONCE PRN; Protocol PRN Reason: Hypoglycemia Protocol Glucagon (Glucagen Diagnostic Kit) 0 mg IM STAT PRN; Protocol PRN Reason: Hypoglycemia Protocol Home Med (Fluticasone/Salmeterol [Airduo Respiclick 113-14 Mcg]) 1 puff IH Q12 [facility] Home Med (Letrozole [Femara]) 2.5 mg PO DAILY [facility] Hydrochlorothiazide (Hydrodiuril) 25 mg PO DAILY [facility] Sodium Chloride (Sodium Chloride 0.9%) 1,000 mls @ 250 mls/hr IV .Q4H [facility] Last Admin: 02/24/18 21:15 Dose: 250 mls/hr Insulin Human Regular (Humulin R) 0 units SC ACHS CHRISTINA PRN Reason: Protocol Last Admin: 02/24/18 22:04 Dose: Not Given Levothyroxine Sodium (Synthroid) 125 mcg PO DAILY@0630 [facility] Last Admin: 02/25/18 06:29 Dose: 125 mcg Losartan Potassium (Cozaar) 100 mg PO DAILY [facility] Montelukast Sodium (Singulair) 10 mg PO DAILY [facility] Sitagliptin Phosphate (Januvia) 100 mg PO DAILY [facility] - Labs Labs: 02/25/18 05:30 02/25/18 05:30 PT 11.7 Seconds (9.8-13.1) 02/25/18 05:30 INR 1.1 (0.9-1.2) 02/25/18 05:30 APTT 26.7 Seconds (25.6-37.1) 02/25/18 05:30 - Constitutional Appears: Well, Non-toxic, No Acute Distress - Head Exam Head Exam: ATRAUMATIC, NORMAL INSPECTION, NORMOCEPHALIC - Eye Exam Eye Exam: EOMI, Normal appearance, PERRL Pupil Exam: NORMAL ACCOMODATION, PERRL - ENT Exam ENT Exam: Mucous Membranes Moist - Respiratory Exam Respiratory Exam: Clear to Ausculation Bilateral, NORMAL BREATHING PATTERN. absent: Rhonchi, Wheezes, Respiratory Distress - Cardiovascular Exam Cardiovascular Exam: REGULAR RHYTHM, +S1, +S2 - GI/Abdominal Exam GI & Abdominal Exam: Soft, Normal Bowel Sounds. absent: Guarding, Rigid, Tenderness - Extremities Exam Extremities Exam: absent: Pedal Edema, Tenderness - Back Exam Back Exam: absent: CVA tenderness (L), CVA tenderness (R) - Neurological Exam Neurological Exam: Alert, Awake, Oriented x3 - Psychiatric Exam Psychiatric exam: Normal Affect, Normal Mood. absent: Agitated, Anxious, Depressed - Skin Skin Exam: Dry, Intact, Normal Color. absent: Rash Assessment and Plan - Assessment and Plan (Free Text) Assessment: 57 y/o with PMHx of DM, HTN, S/P right breast mastectomy for breast ca, asthma is admitted for Chest pain to r/o ACS and Dehydration with hyperglycemia and JENNIFER Plan: Atypical Chest pain to r/o ACS -Acute -CP resolved in ED -Trop x 3 normal -EKG: RBBB with nonspecific ST changes, poss chronic -NPO after midnight -s/p Asa 325 mg stat -C/W Aspirin 81 mg daily -Cardiology consulted at ED(Dr Raphael): Evaluated and rec stress test if trops neg -Could be GI/MSK related if neg cardiac workup(had vomiting episodes 2 days ago) -F/U EKG and stress test Uncontrolled IDDM with hyperglycemia -BS 328 in ED -Ran out of Lantus 3 days ago -Anion gap 21 in ED, 15 today -S/P NS 1 L bolus at ED -Start NS 1L at 250 mls after current bag -ACHS medium dose ISS -Diabetic diet -Hold Lantus and Glipizide for now since patient is NPO after midnight for poss stress test in AM -C/W Januvia 100 mg daily -Hypoglycemia protocol Lactatemia w/o acidosis -Poss due to hyperglycemia, dehydration -Anion gap 21 in ED, 15 today -Lactate 2.7 -Fluids replacement/BS control -Repeat Lactate AM JENNIFER -Improving -BUN/Creat 18/0.8 > 24/1.3 -Poss due to dehydration, Hyperglycemia, vomiting, poor oral intake -Fluid replacement -F/U BMP AM Hypertension - Controlled - C/W HCTZ 25 po qd - C/W Losartan 100 po qd - Monitor VS. Hypothyroidism - TSH 11.20 - Increase Levothyroxine from 125 to 150 mcg. - F/U TSH. DVT prophylaxis -SCDs for now. -Will f/u BMP AM and will start Lovenox HS if kidney function normalized
--- NOTE | 2018-02-25 08:30 | CT ---
Date of service: 02/24/2018 PROCEDURE: CT HEAD WITHOUT CONTRAST. HISTORY: HEADACHE/VOMITING COMPARISON: None available. TECHNIQUE: Axial computed tomography images were obtained through the head/brain without intravenous contrast. Radiation dose: Total exam DLP = mGy-cm. This CT exam was performed using one or more of the following dose reduction techniques: Automated exposure control, adjustment of the mA and/or kV according to patient size, and/or use of iterative reconstruction technique. FINDINGS: HEMORRHAGE: No intracranial hemorrhage. BRAIN: No mass effect or edema. Mild cerebral atrophy. Very few scattered and patchy deep white matter microvascular ischemic changes. are possible. VENTRICLES: Unremarkable. No hydrocephalus. CALVARIUM: Unremarkable. PARANASAL SINUSES: Unremarkable as visualized. No significant inflammatory changes. MASTOID AIR CELLS: Unremarkable as visualized. No inflammatory changes. OTHER FINDINGS: None. IMPRESSION: No hemorrhage or mass effect. Mild cerebral atrophy. Possible few patchy deep white matter microvascular ischemic changes Concordant results (preliminary interpretation) provided by [facility].
[2018-02-25] MEDS: Insulin Regular 100 units/ml SC SCH (08:31)
[2018-02-25 08:36] VITALS: BP 140/108; PULSE 91
[2018-02-25] MEDS ORDERED: Patient's Own Med (Valsartan/Hydrochlorothiazide [Diovan Hct 320-25 Mg Tablet] 1 TAB) PO SCH (09:00)
[2018-02-25] MEDS ORDERED: Patient's Own Med (Fluticasone/Salmeterol [Airduo Respiclick 113-14 Mcg] 1 PUFF) IH SCH (11:30)
--- NOTE | 2018-02-25 11:43 | CP.PCM.DIS ---
Provider - Provider Date of Admission: 02/24/18 19:33 Attending physician: Priyanka Almodovar MD Primary care physician: Dr. Ray Time Spent in preparation of Discharge (in minutes): 15 Diagnosis - Discharge Diagnosis (1) Chest pain Status: Acute Hospital Course - Lab Results Lab Results: Most Recent Lab Values WBC 8.8 K/uL (4.8-10.8) 02/25/18 05:30 RBC 4.75 Mil/uL (3.80-5.20) 02/25/18 05:30 Hgb 12.6 g/dL (12.0-16.0) 02/25/18 05:30 Hct 37.8 % (34.0-47.0) 02/25/18 05:30 MCV 79.5 fl (81.0-99.0) L 02/25/18 05:30 MCH 26.5 pg (27.0-31.0) L 02/25/18 05:30 MCHC 33.3 g/dL (33.0-37.0) 02/25/18 05:30 RDW 15.0 % (11.5-14.5) H 02/25/18 05:30 Plt Count 217 K/uL (130-400) 02/25/18 05:30 MPV 9.0 fl (7.2-11.7) 02/24/18 18:30 Neut % (Auto) 77.1 % (50.0-75.0) H 02/24/18 18:30 Lymph % (Auto) 15.3 % (20.0-40.0) L 02/24/18 18:30 [place] % (Auto) 6.1 % (0.0-10.0) 02/24/18 18:30 Eos % (Auto) 0.8 % (0.0-4.0) 02/24/18 18:30 Baso % (Auto) 0.7 % (0.0-2.0) 02/24/18 18:30 Neut # (Auto) 7.9 K/uL (1.8-7.0) H 02/24/18 18:30 Lymph # (Auto) 1.6 K/uL (1.0-4.3) 02/24/18 18:30 [place] # (Auto) 0.6 K/uL (0.0-0.8) 02/24/18 18:30 Eos # (Auto) 0.1 K/uL (0.0-0.7) 02/24/18 18:30 Baso # (Auto) 0.1 K/uL (0.0-0.2) 02/24/18 18:30 PT 11.7 Seconds (9.8-13.1) 02/25/18 05:30 INR 1.1 (0.9-1.2) 02/25/18 05:30 APTT 26.7 Seconds (25.6-37.1) 02/25/18 05:30 pO2 35 mm/Hg (30-55) 02/24/18 18:28 VBG pH 7.40 (7.32-7.43) 02/24/18 18:28 VBG pCO2 44 mmHg (40-60) 02/24/18 18:28 VBG HCO3 25.7 mmol/L 02/24/18 18:28 VBG Total CO2 28.7 mmol/L (22-28) H 02/24/18 18:28 VBG O2 Sat (Calc) 68.1 % (40-65) H 02/24/18 18:28 VBG Base Excess 2.0 mmol/L (0.0-2.0) 02/24/18 18:28 VBG Potassium 3.9 mmol/L (3.6-5.2) 02/24/18 18:28 Sodium 134.0 mmol/L (132-148) 02/24/18 18:28 Chloride 98.0 mmol/L (98-107) 02/24/18 18:28 Glucose 390 mg/dL (65-105) H 02/24/18 18:28 Lactate 2.7 mmol/L (0.7-2.1) H 02/24/18 18:28 FiO2 21.0 % 02/24/18 18:28 Sodium 139 mmol/l (132-148) 02/25/18 05:30 Potassium 4.0 MMOL/L (3.6-5.0) 02/25/18 05:30 Chloride 101 mmol/L (98-107) 02/25/18 05:30 Carbon Dioxide 26 mmol/L (22-30) 02/25/18 05:30 Anion Gap 16 (10-20) 02/25/18 05:30 BUN 18 mg/dl (7-17) H 02/25/18 05:30 Creatinine 0.8 mg/dl (0.7-1.2) 02/25/18 05:30 Est GFR ( Amer) > 60 02/25/18 05:30 Est GFR (Non-Af Amer) > 60 02/25/18 05:30 POC Glucose (mg/dL) 222 mg/dL (65-110) H 02/25/18 08:09 Random Glucose 207 mg/dL (65-105) H 02/25/18 05:30 Hemoglobin A1c 9.3 % (4.2-6.5) H D 02/24/18 21:31 Calcium 9.3 mg/dL (8.4-10.2) 02/25/18 05:30 Total Bilirubin 0.6 mg/dl (0.2-1.3) 02/24/18 18:30 AST 17 U/L (14-36) 02/24/18 18:30 ALT 17 U/L (9-52) 02/24/18 18:30 Alkaline Phosphatase 93 U/L (38-126) 02/24/18 18:30 Troponin I < 0.0120 ng/mL (0.00-0.120) 02/25/18 05:30 Total Protein 7.6 G/DL (6.3-8.2) 02/24/18 18:30 Albumin 4.2 g/dL (3.5-5.0) 02/24/18 18:30 Globulin 3.4 gm/dL (2.2-3.9) 02/24/18 18:30 Albumin/Globulin Ratio 1.2 (1.0-2.1) 02/24/18 18:30 Lipase 174 U/L (23-300) 02/24/18 18:30 TSH 3rd Generation 11.20 mIU/ML (0.46-4.68) H 02/25/18 09:10 Venous Blood Potassium 3.9 mmol/L (3.6-5.2) 02/24/18 18:28 Urine Color Yellow (YELLOW) 02/24/18 22:24 Urine Clarity Cloudy (Clear) 02/24/18 22:24 Urine pH 5.0 (5.0-8.0) 02/24/18 22:24 Ur Specific [place] 1.020 (1.003-1.030) 02/24/18 22:24 Urine Protein 30 mg/dL (NEGATIVE) 02/24/18 22:24 Urine Glucose (UA) 150 mg/dL (Normal) 02/24/18 22:24 Urine Ketones Negative mg/dL (NEGATIVE) 02/24/18 22:24 Urine Blood Negative (NEGATIVE) 02/24/18 22:24 Urine Nitrate Negative (NEGATIVE) 02/24/18 22:24 Urine Bilirubin Negative (NEGATIVE) 02/24/18 22:24 Urine Urobilinogen 0.2-1.0 mg/dL (0.2-1.0) 02/24/18 22:24 Ur Leukocyte Esterase Trace Zheng/uL (Negative) 02/24/18 22:24 Urine RBC (Auto) 2 /hpf (0-3) 02/24/18 22:24 Urine Microscopic WBC 5 /hpf (0-5) 02/24/18 22:24 Ur Squamous Epith Cells 1 /hpf (0-5) 02/24/18 22:24 Hyaline Casts 0-2 /hpf (0-2) 02/24/18 22:24 - Hospital Course Hospital Course: 57 y/o F with PMHx of IDDM2, hypothyroidism, Asthma, HTN, Breast Ca on remission , presented to ED c/o Chest pressure. Patient evaluated in ER. Started on ASA 325, IV fluids, Lantus with improvement in symptoms. EKG abnormal, No acute ST changes, CBC, CMP, Troponins x [address] head unremarkable. Bladder Changer consult on board. Patient was scheduled for nuclear stress test. Patient wants to leave AMA due to family situation. AMA risks discussed, Understanding verbalized. Pt to do stress test on outpatient basis and F/U with Dr. Ray. Discharge Plan - Follow Up Plan Condition: FAIR Disposition: AGAINST MEDICAL ADVICE Patient education suggested?: Yes Instructions: Chest Pain, Leaving Against Medical Advice Additional Instructions: - Script given for outpatient nuclear stress test - All risk related to AMA discussed, patient verbalized understanding. - AMA form signed - Medication compliance discussed - Patient advised to F/U with Dr. Ray as an outpatient.
--- NOTE | 2018-02-25 13:29 | CARD ---
APPROVED REPORT Date of service: 02/24/2018 EKG Measurement Heart [id number] <Conclusion> Sinus tachycardia Possible Left atrial enlargement Right bundle branch block Left anterior fascicular block Bifascicular block St changes could suggest Myocardial ischmia Abnormal ECG
== END 2018-02-25 11:16 | disposition left against medical advice (07) ==
LOC: H.ER 17:43 → UNDOADMIN 19:33 → H.ERHOLD 19:33 → UNDODISIN 02-25 11:16
DX: R07.9 Chest pain, unspecified (principal); E11.9 Type 2 diabetes mellitus without complications
CPT/HCPCS: 70450; 71045; 80048; 80053; 81003; 82803; 82948; 83036; 83690; 84443; 84484; 85025; 85027; 85610; 85730; 93005; 96374; 99285; J7030

== ENCOUNTER 2018-10-21 11:22 | Emergency (ER) | payer MEDICAID ==
[2018-10-21 11:22] VITALS: BMI 41.8
[2018-10-21 11:46] VITALS: BP 141/85; PULSE 87; RESP 18; TEMP 98.4; O2SAT 96
--- NOTE | 2018-10-21 12:19 | ED PDOC ---
Lower Extremity Pain/Injury Time Seen by Provider: 10/21/18 12:05 Chief Complaint (Nursing): Lower Extremity Problem/Injury Chief Complaint (Provider): Lower Extremity Problem/injury History Per: Patient History/Exam Limitations: no limitations Onset/Duration Of Symptoms: Days (2x) Current Symptoms Are (Timing): Still Present Severity: Moderate Additional Complaint(s): 58 year old female with a past medical history of asthma, diabetes, hypertension, and hypercholesterolemia presents to the ED for an evaluation of left knee pain that started yesterday. Patient states that yesterday afternoon, she tripped over a toy and her left leg went out from under her. Patient denies having a fall, but she states that she heard a pop. Patient states that she felt fine until last night when she was resting, upon standing up she felt pain in her left knee. Patient reports taking advil 600 mg this morning 3.5x hours prior to arrival with moderate relief. Patient states that the pain is exacerbated by weight bearing, movement, especially flexion. 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 Otherwise: (-) other injuries, (-) falls, (-) previous injuries to the left knee, (-) numbness, (-) tingling, (-) decreased motor or sensation, (-) previously seeing an orthopedist. PMD: Jean Ray MD Past Medical History Reviewed: Historical Data, Nursing Documentation, Vital Signs Vital Signs: Last Vital Signs Temp 98.4 F 10/21/18 11:45 Pulse 87 10/21/18 11:45 Resp 18 10/21/18 11:45 BP 141/85 10/21/18 11:45 Pulse Ox 96 10/21/18 11:45 YAMILETH Report Viewed: Yes - Medical History PMH: Asthma, Diabetes, Diverticulitis, HTN, Hypercholesterolemia, Hyperthyroidism, Hypothyroidism, Malignancy (breast CA) Denies: Chronic Kidney Disease - Surgical History Surgical History: Cholecystectomy, (x 2) - Family History Family History: States: Diabetes, Hypertension - Social History Current smoker - smoking cessation education provided: No Alcohol: None Drugs: Denies - Home Medications Home Medications: Ambulatory Orders Medication Instructions Recorded Atorvastatin Calcium [Lipitor] 20 mg PO DAILY 09/26/14 Glimepiride 4 mg PO BID 09/26/14 Albuterol HFA [Ventolin HFA 90 2 puff IH Q6 PRN 01/18/16 mcg/actuation (8 g)] Aspirin [Ecotrin] 81 mg PO DAILY 01/18/16 Levothyroxine [Synthroid] 125 mcg PO DAILY 01/18/16 Valsartan/Hydrochlorothiazide 1 tab PO DAILY 01/18/16 [Diovan Hct 320-25 mg Tablet] Alogliptin Benzoate [Alogliptin] 25 mg PO DAILY 02/24/18 Fluticasone/Salmeterol [Airduo 1 puff IH Q12 02/24/18 Respiclick 113-14 Mcg] Insulin Glargine,Hum.rec.anlog 40 unit SC HS 02/24/18 [Basaglar Kwikpen U-100] Letrozole [Femara] 2.5 mg PO DAILY 02/24/18 Montelukast [Singulair] 10 mg PO DAILY 02/24/18 Ibuprofen [Motrin Tab] 600 mg PO Q6 PRN #20 tab 10/21/18 - Allergies Allergies/Adverse Reactions: Allergies Allergy/AdvReac Type Severity Reaction Status Date / Time No Known Allergies Allergy Verified 10/21/18 11:44 Review of Systems ROS Statement: Except As Marked, All Systems Reviewed And Found Negative Musculoskeletal: Positive for: Other (left knee pain) Neurological: Negative for: Numbness ((-) tingling), Other (decrease in motorsensory) Physical Exam - Reviewed Nursing Documentation Reviewed: Yes Vital Signs Reviewed: Yes - Physical Exam Comments: GENERAL APPEARANCE: Patient is awake, alert, oriented x 3, obese, in no obvious discomfort. SKIN: Warm, dry; (-) cyanosis. LEFT LOWER EXTREMITY: pulses: 2+, capillary refill <2 seconds, full ROM of knee. (+) diffuse anterior tenderness (-)calf tenderness (-) swelling, (-) erythema, (+) neurovascular intact. Remainder of extremities nontender, full ROM. CARDIOVASCULAR: (+) distal pulse. NEUROLOGIC: (+) distal sensation. - ECG O2 Sat by Pulse Oximetry: 96 (RA) Pulse Ox Interpretation: Normal Medical Decision Making Medical Decision Makin:05 Initial impression: 58 year old female with knee pain Initial plan: Patient declining pain medications * XRay knee left 3 views * reevaluation 13:38 xray reviewed by me, +KRISS, no fracture or dislocation on re eval pt reports pain is now coming back and wants something for pain, will treat with Tylenol 650mg PO, apply shanelle wrap and provide ortho follow up Discussed results, diagnosis, treatment, return precautions and f/u with pt who is understanding, in agreement and stable for dc Scribe Attestation: Documented by Shannon Pinto, acting as a scribe for Holland Mcguire PA-C. Provider Scribe Attestation: All medical record entries made by the Scribe were at my direction and personally dictated by me. I have reviewed the chart and agree that the record accurately reflects my personal performance of the history, physical exam, medical decision making, and the department course for this patient. I have also personally directed, reviewed, and agree with the discharge instructions and disposition. Disposition - Clinical Impression Clinical Impression: Knee injury, Osteoarthritis (arthritis due to wear and tear of joints) - Patient ED Disposition Is Patient to be Admitted: No Counseled Patient/Family Regarding: Studies Performed, Diagnosis, Need For Followup, Rx Given - Disposition Referrals: [facility] [place] [Outside] Tessy Melendez MD [Staff Provider] - Disposition: Routine/Home Disposition Time: 13:47 Condition: STABLE Additional Instructions: Return to ED for new or worsening symptoms, fever >100.4, changes in skin color, numbness or tingling, unable to move knee or walk. Follow up with an orthopedist in 5-7 days. Rest, ice and elevate your leg. Wear shanelle wrap for compression and support. Alternate between Ibuprofen and Tylenol as needed for pain. Prescriptions: Ibuprofen [Motrin Tab] 600 mg PO Q6 PRN #20 tab PRN Reason: Pain, Moderate (4-7) Instructions: Osteoarthritis (DC), Knee Sprain (DC), Knee Pain (DC) Forms: [facility] (Amharic), [facility] ED School/Work Excuse Print Language: LITHUANIAN - POA Present On Arrival: None
--- NOTE | 2018-10-21 14:59 | RAD ---
Date of service: 10/21/2018 PROCEDURE: Left Knee Radiographs. HISTORY: Pain. COMPARISON: Comparison made with radiographs of the left knee 08/19/2018. FINDINGS: BONES: Normal. No fracture. JOINTS: Joint spaces are relatively preserved.. JOINT EFFUSION: [id number] suprapatellar joint effusion felt be present. OTHER FINDINGS: None. IMPRESSION: No evidence of acute displaced fracture nor dislocation. Small to medium size suprapatellar joint effusion.
== END 2018-10-21 14:00 | disposition home or self-care (01) ==
LOC: H.ER 11:22
DX: S89.92XA Unspecified injury of left lower leg, initial encounter (principal); W19.XXXA Unspecified fall, initial encounter; Y92.89 Other specified places as the place of occurrence of the external cause; M17.12 Unilateral primary osteoarthritis, left knee; E03.9 Hypothyroidism, unspecified; E05.90 Thyrotoxicosis, unspecified without thyrotoxic crisis or storm; E11.9 Type 2 diabetes mellitus without complications; E78.00 Pure hypercholesterolemia, unspecified; I10 Essential (primary) hypertension; Z79.4 Long term (current) use of insulin; Z85.3 Personal history of malignant neoplasm of breast